=== PATIENT | female | born 2000 | race Caucasian/White ===

== ENCOUNTER 2019-08-20 05:53 | Emergency (ER) | payer MEDICAID, OTHER ==
[~2019-08-20] VITALS: Ht 162.6 cm; Wt 77.1 kg
[~2019-08-20 05:53] MED LIST: ACE325RS; AMOX500C2 PO; DEXTSYP41 PO
[2019-08-20 08:34] LABS: Eosinophils # (auto) 0 uL; Eosinophils % (auto) 0.4 % (0.0-7.0); Lymphocytes # (auto) 1.4 uL; Monocytes # (auto) 0.6 uL; Neutrophils % (auto) 73.7 % (37.0-80.0); Nucleated Red Blood Cells % 0.1 %
[2019-08-20 08:35] LABS: Basophils # (auto) 0.1 uL; Basophils % (auto) 0.7 % (0.0-2.0); Hematocrit 42.8 % (36.0-46.0); Hemoglobin 15.1 g/dL (12.2-16.2); Lymphocytes % (auto) 17.7 % (10.0-50.0); Mean Corpuscular Hemoglobin 31.2 pg (28.0-32.0); Mean Corpuscular Hgb Conc. 35.2 g/dL (32.0-36.0); Mean Corpuscular Volume 88.6 fL (80.0-100.0); Monocytes % (auto) 7.5 % (0.0-12.0); Platelet Count (auto) 327 10^3/uL (140-450); Red Blood Cells 4.83 10^6/uL (4.0-5.20); Red Cell Distribution Width 13.1 % (11.8-14.3); White Blood Cell 8.1 10^3/uL (4.4-10.8)
[2019-08-20 08:56] LABS: BUN/Creatinine Ratio 23.4; Calcium 8.4 mg/dL (8.5-10.1); Potassium 3.5 mmol/L (3.5-5.1)
[2019-08-20 08:59] LABS: Bilirubin, Total 0.4 mg/dL (0.2-1.0); Total Protein 8.1 g/dL (6.4-8.2)
[2019-08-20 09:24] VITALS: BP 109/65
== END 2019-08-20 11:14 | disposition home or self-care (01) ==
LOC: ER 05:55
DX: R11.2 Nausea with vomiting, unspecified (principal); R42 Dizziness and giddiness; J45.909 Unspecified asthma, uncomplicated; K21.9 Gastro-esophageal reflux disease without esophagitis; Z87.11 Personal history of peptic ulcer disease
CPT/HCPCS: 36415; 80053; 85025; 87804

== ENCOUNTER 2021-04-10 12:17 | Emergency (ER) | payer MEDICAID ==
[~2021-04-10] VITALS: Ht 162.6 cm; Wt 86.2 kg
[2021-04-10 13:55] VITALS: BP 157/83
== END 2021-04-10 14:36 | disposition home or self-care (01) ==
LOC: ER 12:17
DX: S00.33XA Contusion of nose, initial encounter (principal); R51.9 Headache, unspecified; K21.9 Gastro-esophageal reflux disease without esophagitis; J45.909 Unspecified asthma, uncomplicated; Z79.2 Long term (current) use of antibiotics; Z79.899 Other long term (current) drug therapy; Z88.8 Allergy status to other drugs, medicaments and biological substances; W17.89XA Other fall from one level to another, initial encounter; Y93.89 Activity, other specified; Y92.89 Other specified places as the place of occurrence of the external cause; Y99.8 Other external cause status
CPT/HCPCS: 70450; 70486; 81025

== ENCOUNTER 2022-05-08 11:42 | Emergency (ER) | payer MEDICAID ==
[~2022-05-08] VITALS: Ht 165.1 cm; Wt 54.0 kg
[2022-05-08 12:51] VITALS: BP 146/96
[2022-05-08 12:59] LABS: Salicylate 4.1 mg/dL (2.8-20.0)
[2022-05-08 13:34] LABS: Acetaminophen < 2.0 ug/mL (10-30)
== END 2022-05-08 13:20 | disposition left against medical advice (07) ==
LOC: ER 11:42 → EDBD 11:42 → ER 13:20
DX: R45.851 Suicidal ideations (principal); K21.9 Gastro-esophageal reflux disease without esophagitis; F17.210 Nicotine dependence, cigarettes, uncomplicated; J45.909 Unspecified asthma, uncomplicated; F12.10 Cannabis abuse, uncomplicated
CPT/HCPCS: 36415; 80320; 80329